=== PATIENT | female | born 1955 | race Caucasian/White ===

== ENCOUNTER 2021-06-30 06:56 | Observation (INO) | payer MEDICARE ==
[~2021-06-30] VITALS: Ht 175.3 cm; Wt 95.7 kg
[~2021-06-30 06:56] MED LIST: AMITRIPTYLINE H50 MG PO; CELECOXIB 200 MG CAP ONE; DEXAMETHASONE SOD PHOS 10 MG/1 ML VIAL ONE; GABAPENTIN 300 MG CAP ONE; GABAPENTIN400 MG PO; LISINOPRIL-HCT1 EACH PO; METOPROLOL SUCC50 MG PO; MOBIC7.5 MG PO; SODIUM CHLORIDE 0.9% 500ML 500 ML ONE; SODIUM CHLORIDE 0.9% 50ML 100 ML ONE; TRANEXAMIC ACID 1,000 MG/10 ML ML ONE; Vancomycin IV 1,000 MG ONE
[2021-06-30] MEDS ORDERED: ROPIVACAINE 246.25 MG, EPINEPHRINE HCL 1:1000 1ML 0.5 MG, CLONIDINE HCL 0.08 MG, KETORO... INJ ONE ×5 (07:30)
[2021-06-30] MEDS ORDERED: DIPHENHYDRAMINE HCL INJ 50 MG/ML VIAL IV PRN (09:30)
[2021-06-30] MEDS ORDERED: ONDANSETRON HCL INJ 2MG/ML 2ML 2 MG/ML VIAL IV PRN (09:30)
[2021-06-30] MEDS ORDERED: ACETAMINOPHEN 650 MG SUPP PR PRN (09:30)
[2021-06-30] MEDS ORDERED: DOCUSATE SODIUM 100 MG CAP PO PRN (09:30)
[2021-06-30] MEDS ORDERED: KETOROLAC TROMETHAMINE 30 MG/ML VIAL IV PRN (09:30)
[2021-06-30 10:55] VITALS: BP 128/66
[2021-06-30 11:07] VITALS: BP 128/66
[2021-06-30] MEDS: SODIUM CHLORIDE 0.9% 1000ML 1,000 ML IV SCH ×2 (11:47→20:29)
[2021-06-30] MEDS ORDERED: GLYCOPYRROLATE INJ 0.2 MG/ML VIAL ONE (12:14)
[2021-06-30] MEDS ORDERED: POVIDONE IODINE 0.05% 0.05 % ML PO ONE (12:14)
[2021-06-30] MEDS ORDERED: PROPOFOL IV EMULSION 10 MG/ML 20 ML VIAL ONE (12:14)
[2021-06-30] MEDS ORDERED: LIDOCAINE HCL 2% LOCAL INJ 5 ML SDV VIAL INJ ONE (12:14)
[2021-06-30] MEDS ORDERED: ONDANSETRON HCL INJ 2MG/ML 2ML 2 MG/ML VIAL ONE (12:14)
[2021-06-30] MEDS ORDERED: KETAMINE HCL INJ 50 MG/ML 10 ML VIAL ONE (12:40)
[2021-06-30] MEDS ORDERED: FENTANYL CITRATE/PF 100MCG/2 ML INJ ONE (12:40)
[2021-06-30] MEDS ORDERED: MIDAZOLAM HCL 2 MG/2 ML VIAL ONE (12:40)
[2021-06-30] MEDS: Cefazolin 1 GM in SODIUM CHLORIDE 0.9% 50ML 50 ML IV SCH ×2 (14:22→21:47)
[2021-06-30] MEDS: HYDROCODONE/APAP 5MG-325MG TAB PO PRN (15:00)
[2021-06-30] MEDS: HYDROCODONE/APAP 7.5MG-325MG 1 EA TAB PO PRN ×2 (15:00→19:47)
[2021-06-30 16:00] VITALS: BP 140/69
[2021-06-30] MEDS: ASPIRIN 325 MG TAB PO SCH (16:34)
[2021-06-30] MEDS: CELECOXIB 100 MG CAP PO SCH (16:34)
[2021-06-30 20:00] VITALS: BP 131/63
[2021-06-30 20:14] VITALS: BP 131/63
[2021-06-30] MEDS ORDERED: ZOLPIDEM TARTRATE 5 MG TAB PO PRN (21:00)
[2021-07-01] MEDS: HYDROCODONE/APAP 7.5MG-325MG 1 EA TAB PO PRN ×2 (00:20→05:10)
[2021-07-01 00:53] VITALS: BP 142/65
[2021-07-01 04:00] VITALS: BP 142/72
[2021-07-01 05:29] LABS: HEMATOCRIT 35.8 % (34.2-44.1); HEMOGLOBIN 11.3 g/dL (12.0-16.0)
[2021-07-01] MEDS: Cefazolin 1 GM in SODIUM CHLORIDE 0.9% 50ML 50 ML IV SCH (05:50)
[2021-07-01] MEDS: SODIUM CHLORIDE 0.9% 1000ML 1,000 ML IV SCH (05:50)
[2021-07-01 08:14] VITALS: BP 155/85
[2021-07-01 08:19] VITALS: BP 155/85
[2021-07-01 08:20] VITALS: BP 155/85
[2021-07-01] MEDS ORDERED: ONDANSETRON HCL 4 MG ORAL DISINTEGRATING TAB PO PRN (09:00)
[2021-07-01 09:20] VITALS: BP 155/85
[2021-07-01] MEDS: HYDROCODONE/APAP 5MG-325MG TAB PO PRN (09:23)
[2021-07-01] MEDS: CELECOXIB 100 MG CAP PO SCH (09:24)
[2021-07-01] MEDS: ASPIRIN 325 MG TAB PO SCH (09:24)
[2021-07-01] MEDS ORDERED: ACETAMINOPHEN 1000 MG/100 ML IV PRN (09:30)
== END 2021-07-01 09:55 | disposition home or self-care (01) ==
LOC: OR 06:56 → PACU V 09:23 → MED/SURG 10:48
PROVIDERS: ADMIT Specialist; ATTEND Specialist
DX: M16.12 Unilateral primary osteoarthritis, left hip (principal); I10 Essential (primary) hypertension; Z79.899 Other long term (current) drug therapy; E66.01 Morbid (severe) obesity due to excess calories; Z68.41 Body mass index [BMI] 40.0-44.9, adult; Z88.0 Allergy status to penicillin; Z20.822 Contact with and (suspected) exposure to COVID-19
CPT/HCPCS: 27130; 36415; 71046; 72170; 85014; 85018; 86850; 86900; 94799 ×2; 97116 ×2; 97139 ×2; 97162; 97530; C1713 ×3; C1776 ×2; G0378 ×2; J0171; J0690 ×2; J1100; J1885; J2001; J2250; J2405; J2704; J2795; J3010; J3370; J7030 ×2; J7040; U0002; 86920

== ENCOUNTER 2021-09-07 05:52 | Observation (INO) | payer MEDICARE ==
[2021-09-03 12:55] LABS: BASOPHILS # (AUTO) 0.1 (0.0-0.1); BASOPHILS % 0.7 % (0.0-1.0); EOSINOPHILS # (AUTO) 0.5 (0.0-0.4); EOSINOPHILS % 5.5 % (0.0-6.0); HEMOGLOBIN 12.5 g/dL (12.0-16.0); LYMPHOCYTES # (AUTO) 1.7 (1.0-3.2); LYMPHOCYTES % 20.3 % (18.0-39.1); MEAN CORPUSCULAR HEMOGLOBIN 27.8 pg (28-32); MEAN CORPUSCULAR HGB CONC 31.3 g/dL (31-35); MEAN CORPUSCULAR VOLUME 89.1 fL (81-99); MONOCYTES # (AUTO) 0.6 (0.2-0.8); MONOCYTES % 7.5 % (4.4-11.3); NEUTROPHILS # (AUTO) 5.4 (2.1-6.9); NEUTROPHILS % 65.8 % (38.7-80.0); PLATELET COUNT 298 x10e3/uL (140-360); RED BLOOD COUNT 4.49 x10e6/uL (3.6-5.1); RED CELL DISTRIBUTION WIDTH 14.6 % (11.7-14.4)
[~2021-09-07] VITALS: Ht 175.3 cm; Wt 128.8 kg
[2021-09-07] VITALS (7 sets, daily range): BP systolic 117–140; BP diastolic 56–66
[~2021-09-07 05:52] MED LIST changes: -CELECOXIB 200 MG CAP ONE; -DEXAMETHASONE SOD PHOS 10 MG/1 ML VIAL ONE; -GABAPENTIN 300 MG CAP ONE; -SODIUM CHLORIDE 0.9% 500ML 500 ML ONE; -SODIUM CHLORIDE 0.9% 50ML 100 ML ONE; -TRANEXAMIC ACID 1,000 MG/10 ML ML ONE; -Vancomycin IV 1,000 MG ONE
[2021-09-07] MEDS ORDERED: CELECOXIB 200 MG CAP ONE (06:23)
[2021-09-07] MEDS ORDERED: DEXAMETHASONE SOD PHOS 10 MG/1 ML VIAL ONE (06:23)
[2021-09-07] MEDS ORDERED: GABAPENTIN 300 MG CAP ONE (06:24)
[2021-09-07] MEDS ORDERED: BUPIVACAINE 7.5MG/ML /DEXTROSE 82.5MG/ML 2 ML AMP INJ ONE (07:12)
[2021-09-07] MEDS ORDERED: ROPIVACAINE 246.25 MG, EPINEPHRINE HCL 1:1000 1ML 0.5 MG, CLONIDINE HCL 0.08 MG, KETORO... INJ ONE ×5 (08:00)
[2021-09-07] MEDS ORDERED: KETOROLAC TROMETHAMINE 30 MG/ML VIAL IV PRN (08:45)
[2021-09-07] MEDS ORDERED: ACETAMINOPHEN 650 MG SUPP PR PRN (08:45)
[2021-09-07] MEDS ORDERED: HYDROCODONE/APAP 5MG-325MG TAB PO PRN (08:45)
[2021-09-07] MEDS ORDERED: DIPHENHYDRAMINE HCL INJ 50 MG/ML VIAL IV PRN (08:45)
[2021-09-07] MEDS ORDERED: ONDANSETRON HCL INJ 2MG/ML 2ML 2 MG/ML VIAL IV PRN (08:45)
[2021-09-07] MEDS ORDERED: DOCUSATE SODIUM 100 MG CAP PO PRN (08:45)
[2021-09-07] MEDS ORDERED: ZOLPIDEM TARTRATE 5 MG TAB PO PRN (08:45)
[2021-09-07] MEDS ORDERED: SODIUM CHLORIDE 0.9% 1000ML 1,000 ML IV SCH (10:30)
[2021-09-07] MEDS: ASPIRIN 325 MG TAB PO SCH ×2 (11:19→17:44)
[2021-09-07] MEDS ORDERED: LIDOCAINE HCL 2% LOCAL INJ 5 ML SDV VIAL INJ ONE (11:51)
[2021-09-07] MEDS ORDERED: EPHEDRINE SULFATE INJ 50 MG/ML VIAL ONE (11:51)
[2021-09-07] MEDS ORDERED: PHENYLEPHRINE HCL 1% 10 MG/ML VIAL ONE (11:51)
[2021-09-07] MEDS ORDERED: POVIDONE IODINE 0.05% 0.05 % ML PO ONE (11:51)
[2021-09-07] MEDS ORDERED: ONDANSETRON HCL INJ 2MG/ML 2ML 2 MG/ML VIAL ONE (11:51)
[2021-09-07] MEDS ORDERED: PROPOFOL IV EMULSION 10 MG/ML 20 ML VIAL ONE (11:51)
[2021-09-07] MEDS ORDERED: FENTANYL CITRATE/PF 100MCG/2 ML INJ ONE (12:14)
[2021-09-07] MEDS ORDERED: MIDAZOLAM HCL 2 MG/2 ML VIAL ONE (12:14)
[2021-09-07] MEDS: HYDROCODONE/APAP 7.5MG-325MG 1 EA TAB PO PRN (13:15)
[2021-09-07] MEDS: METOPROLOL SUCCINATE 50 MG TAB XL PO SCH (17:44)
[2021-09-07] MEDS: LISINOPRIL 10 MG TAB PO SCH (17:44)
[2021-09-07] MEDS: CELECOXIB 200 MG CAP PO SCH (17:44)
[2021-09-07] MEDS: GABAPENTIN 400 MG CAP PO SCH (17:44)
[2021-09-07] MEDS ORDERED: AMITRIPTYLINE HCL 25 MG TAB PO SCH (21:00)
[2021-09-08 00:07] VITALS: BP 113/74
[2021-09-08] MEDS: HYDROCODONE/APAP 7.5MG-325MG 1 EA TAB PO PRN (05:00)
[2021-09-08 05:16] VITALS: BP 95/70
[2021-09-08 05:18] LABS: HEMATOCRIT 32.9 % (34.2-44.1); HEMOGLOBIN 10.2 g/dL (12.0-16.0)
[2021-09-08 05:38] VITALS: BP 159/82
[2021-09-08 07:20] VITALS: BP 123/68
[2021-09-08 08:20] VITALS: BP 123/68
[2021-09-08] MEDS ORDERED: ACETAMINOPHEN 1000 MG/100 ML IV PRN (08:45)
[2021-09-08] MEDS: CELECOXIB 200 MG CAP PO SCH (09:13)
[2021-09-08] MEDS: GABAPENTIN 400 MG CAP PO SCH (09:13)
[2021-09-08] MEDS: ASPIRIN 325 MG TAB PO SCH (09:13)
[2021-09-08] MEDS: LISINOPRIL 10 MG TAB PO SCH (09:14)
[2021-09-08] MEDS: METOPROLOL SUCCINATE 50 MG TAB XL PO SCH (09:14)
[2021-09-08] MEDS ORDERED: ASPIRIN81 MG PO (09:37)
[2021-09-08] MEDS ORDERED: ONDANSETRON HCL 4 MG ORAL DISINTEGRATING TAB PO PRN (10:30)
== END 2021-09-08 10:40 | disposition home or self-care (01) ==
LOC: OR 05:52 → PACU V 08:38 → MED/SURG 09:33
PROVIDERS: ADMIT Specialist; ATTEND Specialist
DX: M16.12 Unilateral primary osteoarthritis, left hip (principal); I10 Essential (primary) hypertension; Z20.822 Contact with and (suspected) exposure to COVID-19; Z88.0 Allergy status to penicillin; E66.01 Morbid (severe) obesity due to excess calories; Z68.41 Body mass index [BMI] 40.0-44.9, adult; Z01.818 Encounter for other preprocedural examination
CPT/HCPCS: 27130; 36415 ×2; 72170; 85014; 85018; 85025; 86850; 86900; 86920; 93005; 94799; 97116 ×2; 97161; 97530 ×2; C1713 ×3; C1776 ×2; G0378 ×2; J0171; J0690 ×2; J1100; J1885; J2001; J2250; J2370; J2405; J2704; J2795; J3010; J7030; U0002